=== PATIENT | female | born 1990 | race Caucasian/White ===

== ENCOUNTER 2016-06-12 00:38 | Emergency (ER) | payer OTHER | END 2016-06-12 01:39 | disposition home or self-care (01) | LOC: FER 00:38 | DX: K02.9 Dental caries, unspecified (principal) | CPT/HCPCS: J1885 ==

== ENCOUNTER 2016-07-01 11:26 | Emergency (ER) | payer OTHER | END 2016-07-01 12:52 | disposition home or self-care (01) | LOC: FER 11:26 | DX: L03.313 Cellulitis of chest wall (principal); F17.210 Nicotine dependence, cigarettes, uncomplicated ==